=== PATIENT | female | born 1980 | race Caucasian/White ===

== ENCOUNTER 2016-06-14 09:40 | Day surgery (SDC) | payer OTHER ==
[~2016-06-14] VITALS: Ht 157.5 cm; Wt 79.4 kg
[2016-06-14 10:47] VITALS: BP 100/70; PULSE 67; RESP 14; O2SAT 95
--- NOTE | 2016-06-14 11:02 | PCM.ENDCOL ---
Colonoscopy Date of Service: Jun 14, 2016 Physician Talat Hebert MD Pre Procedure Diagnosis: Left-sided colitis. Visualized disease activity for mucosal healing. Post Procedure Dx & Findings: Inflammatory polyp diverticuli hemorrhoids Procedure Colonoscopy PROCEDURE IN DETAIL: Prep adequate Withdrawal time 12 minutes After unremarkable rectal examination the Olympus video colonoscope was inserted patient's anal canal and was advanced to cecum. Landmarks were identified including the ileocecal valve and appendiceal orifice. Scope was withdrawn systematically. Visualized colonic mucosa showed healthy shiny mucosa with normal healthy-appearing vasculature. Scope further advanced to the terminal ileum which showed normal villous structures without ulcer or mass erosions. I advanced 10 cm. Starting at the transverse colon to the cecum, there was no evidence of quiescent colitis or isolated colitis patches. In the sigmoid colon at 30 cm from the anal verge, there was a 8 mm polypoid lesion. On the way in, we identified this and it looked irritated and friable. On the way back, we took a biopsy forcep and as we positioned to obtain the tissue sample, I noticed a piece of tissue that was almost broken apart. We grabbed this in the tissue just broke completely apart. In the sigmoid colon there were a few small diverticuli. In the rectum retroflexion was done which showed hemorrhoids. Anal canal was inspected carefully on the way out and hemorrhoids noted. Impression History of left-sided colitis. Subsequently 15 years since the onset of the symptoms based on AGA and ASGE guidelines. However if patient has PSC or develops pancolitis start having yearly screening colonoscopy Hemorrhoids Inflammatory polyp Recommendation See above. Await Biopsy Diverticular diet Presedation Assessment Risks and Benefits Informed consent was obtained from the patient after all risks and benefits including but not limited to drug reaction, infection, pain, bleeding, perforation, as well as alternatives were discussed. Patient monitoring Continuous pulse oximetry, cardiac monitoring, blood pressure monitoring, IV access, and oxygen at 2L per nasal cannula. Periprocedural Fentanyl: Fentanyl 150mcg Incrementally Midazolam: Midazolam 7mg Incrementally Complications There were no periprocedural complications identified. Post Procedure Plan Post Procedure Recommendations 1. Restrict activities today. 2. Resume normal activities in the morning. 3. Resume medications. 4. Patient informed of normal post procedure side effects as bloating, drowsiness, blood streaking in the stool. 5. average risk CRCS. If colon polyps come back as: -Hyperplastic- can repeat colonoscopy in 10 years -Tubular adenoma- repeat colonoscopy in 5 years -Tubulovillous/villous adenoma- repeat colonoscopy in 3 years -If any dysplasia- return to clinic as soon as possible 6. Please don't hesitate to call me with any questions. Talat Hebert MD Jun 14, 2016 11:02
[2016-06-14] MEDS ORDERED: fentaNYL-PF 50 mCg/mL 2 mL Inj ONE ×2 (11:31)
[2016-06-14] MEDS ORDERED: 0.9% Sodium Chloride 1,000 ML IV ONE (11:48)
--- NOTE | 2016-06-14 12:08 | PCM.ENDCOL ---
Colonoscopy Date of Service: Jun 14, 2016 Physician Talat Hebert MD Pre Procedure Diagnosis: Diarrhea Post Procedure Dx & Findings: Hemorrhoids Procedure Colonoscopy PROCEDURE IN DETAIL: Prep adequate Withdrawal time 9 minutes After unremarkable rectal examination the Olympus video colonoscope was inserted patient's anal canal and was advanced to cecum. Landmarks were identified including the ileocecal valve and appendiceal orifice. Scope was withdrawn systematically. Visualized colonic mucosa showed healthy shiny mucosa with normal healthy-appearing vasculature. Advanced to terminal ileum. We advanced 10 cm. Terminal ileum showed normal villous structures without any ulcer or mass erosions. Random biopsies obtained from the cecum to the rectum for workup of diarrhea. In the rectum retroflexion was done which showed hemorrhoids. Anal canal was inspected carefully on the way out and hemorrhoids noted. Impression Normal TI random biopsies obtained Diarrhea Hemorrhoids Recommendation Repeat colonoscopy at 50 years old. Await Biopsies Presedation Assessment Risks and Benefits Informed consent was obtained from the patient after all risks and benefits including but not limited to drug reaction, infection, pain, bleeding, perforation, as well as alternatives were discussed. Patient monitoring Continuous pulse oximetry, cardiac monitoring, blood pressure monitoring, IV access, and oxygen at 2L per nasal cannula. Periprocedural Fentanyl: Fentanyl 100mcg Incrementally Midazolam: Midazolam 5mg Incrementally Complications There were no periprocedural complications identified. Post Procedure Plan Post Procedure Recommendations 1. Restrict activities today. 2. Resume normal activities in the morning. 3. Resume medications. 4. Patient informed of normal post procedure side effects as bloating, drowsiness, blood streaking in the stool. 5. average risk CRCS. If colon polyps come back as: -Hyperplastic- can repeat colonoscopy in 10 years -Tubular adenoma- repeat colonoscopy in 5 years -Tubulovillous/villous adenoma- repeat colonoscopy in 3 years -If any dysplasia- return to clinic as soon as possible 6. Please don't hesitate to call me with any questions. Talat Hebert MD Jun 14, 2016 12:08
[2016-06-14 12:10] VITALS: BP 111/68; PULSE 75; RESP 14; O2SAT 97
[2016-06-14 12:37] VITALS: BP 141/80; PULSE 69; RESP 12; O2SAT 100
[2016-06-14 13:37] VITALS: BP 111/75; PULSE 65; RESP 14; O2SAT 93
--- NOTE | 2016-06-17 08:41 | PATH ---
SURGICAL PATHOLOGY Attending Physician:Talat Hebert M.D. CASE STATUS: Signed Out PATIENT NAME: MYLA DIAZ PID: [id number] : 1980 DATE COLLECTED:06/14/2016 22:11 SPECIMEN: Colon, Biopsy CLINICAL HISTORY: 1). RANDOM COLON BIOPSY FINAL DIAGNOSIS: Random Colon Biopsies: Patchy mucosal lymphocytosis associated with focal thickening of the subepithelial basement membrane. Trichrome stain accentuates the focal fibrosis. No evidence of malignancy or dysplasia (please see comment). ICD10 K52.89 NOTE: The findings are most consistent with collagenous colitis. GROSS DESCRIPTION: The specimen is received in one formalin filled container labeled with the patient's name, sublabeled "random colon" and consists of multiple portions of tissue which aggregate to 0.6-0.6 x 0.3 CM. The specimen is entirely submitted in one cassette. 06/14/2016 [facility] ICD-9 CODES: CPT CODES: 1: 98507, 75068 Electronically Signed Out Phil South MD [facility] Pathology [facility] [address], [place] [address] Technical component performed at [facility], [address] [place] [address] Ave[address], [place], [address]
== END 2016-06-14 23:59 | disposition home or self-care (01) ==
LOC: END 09:40
PROVIDERS: ATTEND Internal Medicine
DX: K52.831 Collagenous colitis (principal); G43.909 Migraine, unspecified, not intractable, without status migrainosus; E07.9 Disorder of thyroid, unspecified; F17.210 Nicotine dependence, cigarettes, uncomplicated; F15.90 Other stimulant use, unspecified, uncomplicated
CPT/HCPCS: 45380; G0500; J2250; J3010; J7030